=== PATIENT | female | born 1955 | race Caucasian/White ===

== ENCOUNTER 2018-02-18 00:34 | Observation (INO) | payer MEDICAID ==
[2018-02-18 01:08] LABS: ADD MAN DIFF? NO
[2018-02-18 01:09] LABS: WHITE BLOOD COUNT 7.8 10^3/ul (4.8-10.8)
[2018-02-18 01:09] LABS: BASOPHILS % 0.4 % (0.0-2.0); EOSINOPHILS # 0.6 10^3/ul (0.0-0.5); EOSINOPHILS % 7.5 % (0.0-7.0); HEMATOCRIT 39.1 % (37.0-47.0); HEMOGLOBIN 12.9 g/dl (12.0-16.0); LYMPHOCYTES % 12.4 % (15.0-51.0); MEAN CORPUSCULAR HEMOGLOBIN 30.1 pg (29.0-33.0); MEAN CORPUSCULAR VOLUME 91.1 fl (82.0-101.0); MEAN PLATELET VOLUME 10.6 fl (7.4-10.4); MONOCYTE # 0.8 10^3/ul (0.3-0.9); MONOCYTES % 10.2 % (0.0-11.0); NEUTROPHIL # 5.4 10^3/ul (1.6-7.5); NEUTROPHILS % 69.1 % (39.0-77.0); PLATELET COUNT 237 10^3/UL (140-415); RED BLOOD COUNT 4.29 10^6/ul (4.20-5.40); RED CELL DISTRIBUTION WIDTH 12.5 % (11.5-14.5)
[2018-02-18 01:34] LABS: INR 0.93; PARTIAL THROMBOPLASTIN TIME 26.9 Sec (25.0-35.0); PROTIME 12.5 Sec (11.9-14.9)
[2018-02-18 01:34] LABS: LACTIC ACID 1.7 mmol/L (0.5-2.0)
[2018-02-18 01:36] LABS: ADD UMIC YES; UR ASCORBIC ACID NEGATIVE (NEGATIVE); UR BILIRUBIN (Dip) NEGATIVE (NEGATIVE); UR BLOOD (Dip) 1+ mg/dL (NEGATIVE); UR CLARITY CLEAR (CLEAR); UR COLOR STRAW (YELLOW); UR GLUCOSE (Dip) NEGATIVE (NEGATIVE); UR KETONES (Dip) NEGATIVE (NEGATIVE); UR LEUKOCYTE ESTERASE (Dip) TRACE Leu/ul (NEGATIVE); UR MUCUS FEW /HPF (NONE SEEN); UR NITRITE (Dip) NEGATIVE (NEGATIVE); UR RBC 0 /HPF (0-5); UR SPECIFIC GRAVITY (Dip) 1.006 (1.003-1.030); UR TOTAL PROTEIN (Dip) NEGATIVE (NEGATIVE); UR UROBILINOGEN (Dip) NEGATIVE (NEGATIVE); UR WBC 5 /HPF (0-5)
[2018-02-18 02:01] LABS: ALANINE AMINOTRANSFERASE 54 IU/L (13-69); ALBUMIN 3.8 g/dl (3.3-4.9); ALBUMIN/GLOBULIN RATIO 1.11; ALKALINE PHOSPHATASE 107 IU/L (42-121); ANION GAP 14 (8-16); ASPARTATE AMINO TRANSFERASE 42 IU/L (15-46); BILIRUBIN,INDIRECT 0.2 mg/dl (0-1.1); BILIRUBIN,TOTAL 0.2 mg/dl (0.2-1.3); BLOOD UREA NITROGEN 14 mg/dl (7-20); CALCIUM 9.2 mg/dl (8.4-10.2); CARBON DIOXIDE 31 mmol/L (21-31); CHLORIDE 100 mmol/L (97-110); CREATININE 0.56 mg/dl (0.44-1.00); GLUCOSE 110 mg/dl (70-220); POTASSIUM 4.1 mmol/L (3.5-5.1); SODIUM 141 mmol/L (135-144); TOTAL PROTEIN 7.2 g/dl (6.1-8.1)
[2018-02-18] MEDS ORDERED: ACETAMINOPHEN 325 MG TAB (02:03)
[2018-02-18 02:12] LABS: TROPONIN-I < 0.012 ng/ml (0.000-0.120)
[2018-02-18] MEDS: ACETAMINOPHEN 325 MG TAB PO ×4 (02:19→21:42)
[2018-02-18 02:56] LABS: LACTIC ACID 1.7 mmol/L (0.5-2.0)
[2018-02-18] MEDS: CEFTRIAXONE 1 GM/50 ML (PMX) 50 ML IVPB (03:30)
[2018-02-18] MEDS: AZITHROMYCIN 500MG/NS (PMX) 250 ML IV (04:03)
[2018-02-18] MEDS: KETOROLAC 30 MG INJ IV (05:34)
[2018-02-18 06:22] LABS: LACTIC ACID 1.5 mmol/L (0.5-2.0)
[2018-02-18] MEDS ORDERED: NACL 0.9% 3 ML SYG IV (06:30)
[2018-02-18] MEDS ORDERED: DOCUSATE SODIUM 100 MG CAP PO (06:30)
[2018-02-18] MEDS ORDERED: ONDANSETRON 4 MG INJ IV (06:30)
[2018-02-18] MEDS ORDERED: BISACODYL (EC) 5 MG TAB PO (06:30)
[2018-02-18 07:37] LABS: LIPASE 149 U/L (23-300)
[2018-02-18] MEDS: INSULIN ASPART [NOVOLOG] 3 ML PEN SC ×4 (09:00→21:00)
[2018-02-18] MEDS ORDERED: GLUCAGON 1 MG INJ IM (09:30)
[2018-02-18] MEDS ORDERED: DEXTROSE 50% 50 ML SYRINGE IV ×2 (09:30)
[2018-02-18] MEDS ORDERED: GLUCOSE GEL 15 GRAM TUBE PO ×2 (09:30)
[2018-02-18] MEDS ORDERED: GLUCOSE GEL 15 GRAM TUBE BUCCAL (09:30)
[2018-02-18] MEDS: LOSARTAN 50 MG TAB PO ×2 (12:37→21:42)
[2018-02-18] MEDS: LEVOFLOXACIN 500MG/D5W (PMX) 100 ML IVPB (13:15)
[2018-02-18] MEDS: SOD CHLORIDE 0.9% 1,000 ML IV (14:51)
[2018-02-18] MEDS: ATORVASTATIN 10 MG TAB PO (21:43)
[2018-02-18] MEDS: INSULIN ASP PROT/ASPART (70/30) PEN SC (22:55)
[2018-02-18] MEDS: GUAIFENESIN 20 MG/ML 5ML CUP PO (23:00)
[2018-02-19] MEDS: ALBUTEROL/IPRATROPIUM (NEB) 3 ML AMP HHN ×3 (00:09→14:42)
[2018-02-19] MEDS: HYDROCODONE/APAP (5/325) TAB PO ×2 (00:12→07:50)
[2018-02-19] MEDS: ACCU-CHEK XX (02:00)
[2018-02-19] MEDS: GUAIFENESIN 20 MG/ML 5ML CUP PO ×3 (02:43→07:00)
[2018-02-19] MEDS ORDERED: AZITHROMYCIN 500MG/NS (PMX) 250 ML IVPB (03:00)
[2018-02-19] MEDS ORDERED: CEFTRIAXONE 1 GM/50 ML (PMX) 50 ML IVPB (03:00)
[2018-02-19 06:01] LABS: ADD MAN DIFF? NO
[2018-02-19 06:06] LABS: BASOPHILS % 0.4 % (0.0-2.0); EOSINOPHILS # 0.3 10^3/ul (0.0-0.5); EOSINOPHILS % 3.9 % (0.0-7.0); HEMATOCRIT 39.2 % (37.0-47.0); LYMPHOCYTES # 0.8 10^3/ul (0.8-2.9); LYMPHOCYTES % 10.6 % (15.0-51.0); MEAN CORPUSCULAR HEMOGLOBIN 30.2 pg (29.0-33.0); MEAN CORPUSCULAR HGB CONC 33.2 g/dl (32.0-37.0); MONOCYTE # 0.8 10^3/ul (0.3-0.9); MONOCYTES % 9.9 % (0.0-11.0); NEUTROPHIL # 5.7 10^3/ul (1.6-7.5); NEUTROPHILS % 74.7 % (39.0-77.0); PLATELET COUNT 206 10^3/UL (140-415); RED BLOOD COUNT 4.31 10^6/ul (4.20-5.40); RED CELL DISTRIBUTION WIDTH 12.4 % (11.5-14.5)
[2018-02-19 06:06] LABS: WHITE BLOOD COUNT 7.7 10^3/ul (4.8-10.8)
[2018-02-19 06:57] LABS: MAGNESIUM 2.2 mg/dl (1.7-2.5)
[2018-02-19 07:12] LABS: ANION GAP 14 (8-16); BLOOD UREA NITROGEN 11 mg/dl (7-20); CALCIUM 8.7 mg/dl (8.4-10.2); CARBON DIOXIDE 28 mmol/L (21-31); CHLORIDE 102 mmol/L (97-110); CREATININE 0.41 mg/dl (0.44-1.00); GLUCOSE 127 mg/dl (70-220); PHOSPHORUS 4.6 mg/dl (2.5-4.9); POTASSIUM 3.9 mmol/L (3.5-5.1); SODIUM 140 mmol/L (135-144)
[2018-02-19] MEDS: INSULIN ASPART [NOVOLOG] 3 ML PEN SC ×2 (08:43→12:00)
[2018-02-19] MEDS: INSULIN ASP PROT/ASPART (70/30) PEN SC (08:45)
[2018-02-19] MEDS: ASPIRIN 81 MG TAB PO (08:53)
[2018-02-19] MEDS: LOSARTAN 50 MG TAB PO (08:54)
[2018-02-19] MEDS: LEVOFLOXACIN 500MG/D5W (PMX) 100 ML IVPB (12:32)
[2018-02-19] MEDS ORDERED: ALBUTEROL/IPRATROPIUM (NEB) 3 ML AMP HHN (14:00)
== END 2018-02-19 16:10 | disposition home or self-care (01) ==
LOC: E/R 00:34 → 2NE 03:13
DX: J18.9 Pneumonia, unspecified organism (principal); E11.9 Type 2 diabetes mellitus without complications; E78.5 Hyperlipidemia, unspecified; E66.9 Obesity, unspecified; Z68.21 Body mass index [BMI] 21.0-21.9, adult; Z79.82 Long term (current) use of aspirin; Z79.84 Long term (current) use of oral hypoglycemic drugs; Z79.4 Long term (current) use of insulin; I10 Essential (primary) hypertension
CPT/HCPCS: 71045; 80048; 80053; 81001; 82962; 83036; 83605; 83690; 83735; 84100; 84443; 84484; 85025; 85610; 85730; 87040; 87086; 93005; 94640; 94664; G0378